=== PATIENT | male | born 1990 | race Caucasian/White ===

== ENCOUNTER 2017-12-18 09:35 | Emergency (ER) | payer BC, OTHER ==
--- NOTE | 2017-12-18 10:44 | ER Document Report ---
ED GI/ - General Chief Complaint: Testicular Pain Stated Complaint: LEFT SIDE PAIN Time Seen by Provider: 12/18/17 10:36 Notes: The patient is a 27-year-old male, no past medical history, presents with 1 week of left-sided testicular pain that is worse with movement. He went to the urgent care and was sent to the ER for further evaluation. He denies hematuria , dysuria, rash, flank pain, fevers, swelling, nausea or vomiting. TRAVEL OUTSIDE OF THE [place] IN LAST 30 DAYS: No - Related Data Allergies/Adverse Reactions: No Known Allergies Allergy (Unverified 12/18/17 09:36) Past Medical History - General Information source: Patient - Social History Smoking Status: Never Smoker Chew tobacco use (# tins/day): No Frequency of alcohol use: None Drug Abuse: None Family History: Reviewed & Not Pertinent Patient has suicidal ideation: No Patient has homicidal ideation: No Renal/ Medical History: Denies: Hx Peritoneal Dialysis Review of Systems - Review of Systems Notes: REVIEW OF SYSTEMS: CONSTITUTIONAL: -fevers, -chills EENT: -eye pain, -difficulty swallowing, -nasal congestion CARDIOVASCULAR: -chest pain, -syncope. RESPIRATORY: -cough, -SOB GASTROINTESTINAL: -abdominal pain, -nausea, -vomiting, -diarrhea GENITOURINARY: -dysuria, -hematuria, +left testicular pain MUSCULOSKELETAL: -back pain, -neck pain SKIN: -rash or skin lesions. HEMATOLOGIC: -easy bruising or bleeding. LYMPHATIC: -swollen, enlarged glands. NEUROLOGICAL: -altered mental status or loss of consciousness, -headache, - neurologic symptoms PSYCHIATRIC: -anxiety, -depression. ALL OTHER SYSTEMS REVIEWED AND NEGATIVE. Physical Exam - Vital signs Vitals: Temp Pulse Resp BP Pulse Ox 98.2 F 86 16 133/74 H 100 12/18/17 09:41 12/18/17 09:41 12/18/17 09:41 12/18/17 09:41 12/18/17 09:41 - Notes Notes: PHYSICAL EXAMINATION: GENERAL: Well-appearing, well-nourished and in no acute distress. HEAD: Atraumatic, normocephalic. EYES: Pupils equal round and reactive to light, extraocular movements intact, sclera anicteric, conjunctiva are normal. ENT: nares patent, oropharynx clear without exudates. Moist mucous membranes. NECK: Normal range of motion, supple without lymphadenopathy LUNGS: Breath sounds clear to auscultation bilaterally and equal. No wheezes rales or rhonchi. HEART: Regular rate and rhythm without murmurs ABDOMEN: Soft, nontender, normoactive bowel sounds. No guarding, no rebound. No masses appreciated. : Tenderness over left testicle. No asymmetry. No inguinal hernia palpated. EXTREMITIES: Normal range of motion, no pitting or edema. No cyanosis. NEUROLOGICAL: Cranial nerves grossly intact. Normal speech, normal gait. Normal sensory and motor exams. PSYCH: Normal mood, normal affect. SKIN: Warm, Dry, normal turgor, no rashes or lesions noted. Course - Re-evaluation Re-evalutation: Patient appears well. Exam and ultrasound did not reveal torsion or mass. Urinalysis also does not show evidence of infection or blood. Symptoms are atypical for kidney stone. Instructed him to follow-up with urologist and use symptomatic treatment with NSAIDs and briefs. - Vital Signs Vital signs: Temp Pulse Resp BP Pulse Ox 98.2 F 86 16 133/74 H 100 12/18/17 09:41 12/18/17 09:41 12/18/17 09:41 12/18/17 09:41 12/18/17 09:41 - Diagnostic Test Radiology reviewed: Image reviewed, Reports reviewed Radiology results interpreted by me: Scrotal US: NAD Discharge - Discharge Clinical Impression: Left testicular pain Condition: Stable Disposition: HOME, SELF-CARE Additional Instructions: You may take Motrin and wear briefs to help out with your pain. Follow-up with the urologist if the pain is not improving. Forms: Elevated Blood Pressure Referrals: CHILO FORD [Primary Care Provider] - Follow up as needed [facility] [Provider Group] - Follow up as needed
[2017-12-18 11:01] LABS: APPEARANCE,URINE CLEAR; BILIRUBIN,URINE NEGATIVE (NEGATIVE); COLOR,URINE YELLOW; GLUCOSE, URINE NEGATIVE (NEGATIVE); KETONES,URINE NEGATIVE (NEGATIVE); LEUKOCYTE ESTERASE,URINE NEGATIVE (NEGATIVE); NITRITE,URINE NEGATIVE (NEGATIVE); PROTEIN,URINE NEGATIVE (NEGATIVE); URINE SPECIFIC GRAVITY 1.012; UROBILINOGEN,URINE NEGATIVE mg/dL (<2.0)
--- NOTE | 2017-12-18 11:54 | RADIOLOGY REPORT (SQ) ---
EXAM DESCRIPTION: U/S SCROTUM W/DOPPLER COMPLETED DATE/TIME: 12/18/2017 11:46 am REASON FOR STUDY: left testicular pain COMPARISON: None. TECHNIQUE: Static and realtime mccrary scale imaging of the scrotum and testes. Selected color Doppler and spectral images recorded to document blood flow. LIMITATIONS: None. FINDINGS: RIGHT: TESTICLE: Normal size, 3.5 x 2.7 x 2.4 cm. Normal echotexture. Normal blood flow. No mass. EPIDIDYMIS: Normal. HYDROCELE OR VARICOCELE: No. HERNIA OR EXTRA-TESTICULAR MASS: No. OTHER: No other significant finding. LEFT: TESTICLE: Normal size, 3.4 x 2.7 x 2.1 cm. Normal echotexture. Normal blood flow. No mass. EPIDIDYMIS: Normal. HYDROCELE OR VARICOCELE: No. HERNIA OR EXTRA-TESTICULAR MASS: No. OTHER: No other significant finding. IMPRESSION: NORMAL SCROTAL ULTRASOUND. NO EVIDENCE OF TESTICULAR MASS OR TORSION. TECHNICAL DOCUMENTATION: JOB ID: [id number] [employer]- All Rights Reserved Reading location - IP/workstation name: [email or web address]
[2017-12-18 12:33] LABS: CHLAM PCR NOT DETECTED (NOT DETECT); GON PCR NOT DETECTED (NOT DETECT)
[2017-12-18 12:36] VITALS: BP 147/77
== END 2017-12-18 12:36 | disposition home or self-care (01) ==
LOC: ER 09:35
DX: N50.812 Left testicular pain (principal)
CPT/HCPCS: 76870; 81001; 87491; 87591; 93976; 99284

== ENCOUNTER 2018-01-12 20:04 | Emergency (ER) | payer BC ==
--- NOTE | 2018-01-12 21:51 | EKG REPORT ---
SEVERITY:- ABNORMAL ECG - SINUS TACHYCARDIA NONSPECIFIC INTRAVENTRICULAR CONDUCTION DELAY : Confirmed by: Felicia Kent 12-Jan-2018 21:50:55
--- NOTE | 2018-01-12 22:14 | ER Document Report ---
ED Medical Screen (RME) - General Chief Complaint: Chest Pain Stated Complaint: CHEST PAIN Time Seen by Provider: 01/12/18 22:08 Notes: 27-year-old male, chief complaint of chest pain along the left sternal border for 1 week, sharp intermittent. He also complains that within the past day he is had episodes where he felt lightheaded and he got tingling sensations in his hands. He felt nausea earlier, denies any now. Denies shortness of breath. Denies fever chills or recent illness. Denies history of the same. No daily medications. He denies any recreational drugs, smoking, or alcohol. TRAVEL OUTSIDE OF THE [place] IN LAST 30 DAYS: No - Related Data Allergies/Adverse Reactions: No Known Allergies Allergy (Unverified 12/18/17 09:36) Past Medical History Renal/ Medical History: Denies: Hx Peritoneal Dialysis Physical Exam - Vital signs Vitals: Temp Pulse Resp BP Pulse Ox 98.8 F 101 H 15 137/83 H 100 01/12/18 20:18 01/12/18 20:18 01/12/18 20:18 01/12/18 20:18 01/12/18 20:18 - Respiratory Respiratory status: No respiratory distress Chest status: Tender - Left sternal border Breath sounds: Normal. No: Decreased air movement, Wheezing - Cardiovascular Rhythm: Regular, Tachycardia - Borderline Heart sounds: Normal auscultation, S1 appreciated, S2 appreciated Murmur: No Course - Re-evaluation Re-evalutation: Patient has pain along his left sternal border, most likely chest wall pain, however based on his reported symptoms of lightheadedness and tingling sensations will obtain blood count and chemistry in addition to EKG and chest x- ray. - Vital Signs Vital signs: Temp Pulse Resp BP Pulse Ox 98.8 F 101 H 15 137/83 H 100 01/12/18 20:18 01/12/18 20:18 01/12/18 20:18 01/12/18 20:18 01/12/18 20:18
--- NOTE | 2018-01-12 22:43 | RADIOLOGY REPORT (SQ) ---
CXR- 2 VIEW Clinical history: 27-year-old male with chest pain. Comparison: None. Technique: 2 views of the chest are submitted for review. Findings: The lungs are adequately expanded without evidence of infiltrate and/or effusion. The cardiac silhouette measures within normal. Pulmonary vascularity is unremarkable. Osseous structures are within normal limits for age. Impression: No plain film evidence for acute cardiopulmonary disease.
[2018-01-12 22:45] LABS: ANION GAP 15 (5-19); BLOOD UREA NITROGEN 13 mg/dL (7-20); CARBON DIOXIDE 26 mmol/L (22-30); CHLORIDE 104 mmol/L (98-107); GLUCOSE 81 mg/dL (75-110); POTASSIUM 3.9 mmol/L (3.6-5.0); SODIUM 145.4 mmol/L (137-145)
[2018-01-12 22:57] LABS: ABSOLUTE EOSINOPHILS # (AUTO) 0.1 10^3/uL (0.0-0.6); ABSOLUTE LYMPHOCYTES (AUTO) 2.8 10^3/uL (0.5-4.7); ABSOLUTE MONOCYTES (AUTO) 0.9 10^3/uL (0.1-1.4); ABSOLUTE NEUT (AUTO) 7.4 10^3/uL (1.7-8.2); BASOPHILS % (AUTO) 0.4 % (0-2); EOSINOPHILS % (AUTO) 0.5 % (0-6); HEMOGLOBIN 16.6 g/dL (13.5-17.0); LYMPHOCYTES % (AUTO) 25.3 % (13-45); MEAN CORPUSCULAR HEMOGLOBIN 28.9 pg (27.0-33.4); MEAN CORPUSCULAR HGB CONC 34.5 g/dL (32.0-36.0); MEAN CORPUSCULAR VOLUME 84 fl (80-97); MONOCYTES % (AUTO) 7.7 % (3-13); PLATELET COUNT 263 10^3/uL (150-450); RED BLOOD COUNT 5.73 10^6/uL (4.35-5.55); RED CELL DISTRIBUTION WIDTH 12.8 % (11.5-14.0); SEGMENTED NEUTROPHILS % (AUTO) 66.1 % (42-78); TOTAL CELLS COUNTED % (AUTO) 100 %; WHITE BLOOD COUNT 11.2 10^3/uL (4.0-10.5)
--- NOTE | 2018-01-12 23:39 | ER Document Report ---
ED General - General Chief Complaint: Chest Pain Stated Complaint: CHEST PAIN Time Seen by Provider: 01/12/18 22:08 Notes: 27-year-old male to the emergency department chief complaint of chest pain. Patient states that he has chest pain on and off. If you would put his finger on his sternum that would make it go away. No shortness of breath. No recent surgeries. No history of blood clots. No significant pulmonary embolism risk factors. Does not smoke. Does not drink. Does not take any medications. Patient went to see his regular doctor recently to discuss getting on some medications for anxiety. Has an appointment scheduled with [facility] neuropsychiatric clinic but has not seen them yet. Denies any fever, chills or sweats. Denies any other symptoms at this time. TRAVEL OUTSIDE OF THE [place] IN LAST 30 DAYS: No - HPI Onset/Duration: Gradual Severity: Mild Pain Level: 0 - Related Data Allergies/Adverse Reactions: No Known Allergies Allergy (Unverified 12/18/17 09:36) Past Medical History - General Information source: Patient - Social History Smoking Status: Never Smoker Frequency of alcohol use: None Drug Abuse: None Lives with: Parents Family History: Reviewed & Not Pertinent Patient has suicidal ideation: No Patient has homicidal ideation: No Renal/ Medical History: Denies: Hx Peritoneal Dialysis Review of Systems - Review of Systems Notes: Constitutional: denies: Chills, Diaphoresis, Fever, Malaise, Weakness EENT: denies: Eye discharge, Blurred vision, Tearing, Double vision, Nose congestion, Nose discharge, Throat swelling, Mouth pain Cardiovascular: denies: Palpitations, Heart racing, Orthopnea, Dyspnea. Complains of intermittent chest pain relieved with palpation. Respiratory: denies: Cough, Hurts to breathe, Wheezing, Shortness of breath Gastrointestinal: denies: Abdominal pain, Diarrhea, Nausea, Vomiting, Black stools Genitourinary: denies: Burning, Dysuria, Discharge, Frequency, Flank pain, Hematuria Musculoskeletal: denies: Joint pain, Joint swelling, Muscle pain, Muscle stiffness, back pain Hematologic/Lymphatic: denies: Anemia, Easy bleeding, Easy bruising, Blood clots Neurological/Psychological: denies: Confusion, Dementia, Depression, Loss of consciousness. Does complain of some intermittent numbness and tingling of his fingers. Is complaining of some anxiety Skin: Denies any rashes or lesions Physical Exam - Vital signs Vitals: Temp Pulse Resp BP Pulse Ox 98.8 F 101 H 15 137/83 H 100 01/12/18 20:18 01/12/18 20:18 01/12/18 20:18 01/12/18 20:18 01/12/18 20:18 Interpretation: Normal - Notes Notes: Well-appearing 27-year-old male anxious but otherwise unremarkable. - General General appearance: Appears well, Alert - HEENT Head: Normocephalic, Atraumatic Eyes: Normal Pupils: PERRL - Respiratory Respiratory status: No respiratory distress Chest status: Nontender Breath sounds: Normal Chest palpation: Normal - Cardiovascular Rhythm: Regular Heart sounds: Normal auscultation Murmur: No - Abdominal Inspection: Normal Distension: No distension Bowel sounds: Normal Tenderness: Nontender Organomegaly: No organomegaly - Back Back: Normal, Nontender - Extremities General upper extremity: Normal inspection, Nontender, Normal color, Normal ROM , Normal temperature General lower extremity: Normal inspection, Nontender, Normal color, Normal ROM , Normal temperature, Normal weight bearing. No: Zhao's sign - Neurological Neuro grossly intact: Yes Cognition: Normal Orientation: AAOx4 [place] Coma Scale Eye Opening: Spontaneous [place] Coma Scale Verbal: Oriented [place] Coma Scale Motor: Obeys Commands [place] Coma Scale Total: 15 Speech: Normal Motor strength normal: LUE, RUE, LLE, RLE Sensory: Normal - Psychological Associated symptoms: Normal affect, Normal mood. No: Agitated, Angry - Skin Skin Temperature: Warm Skin Moisture: Dry Skin Color: Normal Course - Re-evaluation Re-evalutation: 01/13/18 00:15 Patient had sinus tachycardia but after visiting with him patient is quite the anxious individual. Patient has a degree but has never gotten a job. Does express some severe generalized anxiety. Symptoms would be consistent with that as well. No chest pain at this time. Likely everything is unremarkable more than likely this represents some spectrum of his anxiety. Patient does have a follow-up appointment for a psychiatrist. I think this is most likely beneficial thing for him at this time. Patient is low risk for pulmonary embolism. No risk factors at this time. No active chest pain. Heart rate is in the 70s. Patient resting comfortably at this time. When I go in the room to speak with him his heart rate comes up. When I believe I can see him on a monitor and the heart rate goes down so definitely has some component of some white coat syndrome going on here. Blood pressure was high when I went in the room as well. Mother is in the room at this time and is present during the conversation. 01/13/18 00:44 Laboratory 01/12/18 01/12/18 01/12/18 21:20 21:20 21:20 WBC 11.2 H RBC 5.73 H Hgb 16.6 Hct 48.0 MCV 84 MCH 28.9 MCHC 34.5 RDW 12.8 Plt Count 263 Seg Neutrophils % 66.1 Lymphocytes % 25.3 Monocytes % 7.7 Eosinophils % 0.5 Basophils % 0.4 Absolute Neutrophils 7.4 Absolute Lymphocytes 2.8 Absolute Monocytes 0.9 Absolute Eosinophils 0.1 Absolute Basophils 0.0 Sodium 145.4 H Potassium 3.9 Chloride 104 Carbon Dioxide 26 Anion Gap 15 BUN 13 Creatinine 1.10 Est GFR ( Amer) > 60 Est GFR (Non-Af Amer) > 60 Glucose 81 Calcium 10.0 TSH 1.52 Free T4 1.29 - Vital Signs Vital signs: Temp Pulse Resp BP Pulse Ox 98.8 F 101 H 15 137/83 H 100 01/12/18 20:18 01/12/18 20:18 01/12/18 20:18 01/12/18 20:18 01/12/18 20:18 - Laboratory Result Diagrams: 01/12/18 21:20 01/12/18 21:20 Laboratory results interpreted by ia: 01/12/18 01/12/18 21:20 21:20 WBC 11.2 H RBC 5.73 H Sodium 145.4 H - EKG Interpretation by Ia EKG shows normal: [place], Intervals, QRS Complexes, ST-T Waves Rate: Tachycardia Discharge - Discharge Clinical Impression: Chest pain Qualifiers: Chest pain type: unspecified Qualified Code(s): R07.9 - Chest pain, unspecified Condition: Good Disposition: HOME, SELF-CARE Instructions: Chest Pain of Unclear Cause ([facility]) Additional Instructions: Please follow-up with your regular doctor soon as possible for repeat evaluation. Referrals: FREEMAN STREETER MD [ACTIVE STAFF] - Follow up in 1 month
[2018-01-13 00:19] LABS: FREE T4 (FREE THYROXINE) 1.29 ng/dL (0.78-2.19)
[2018-01-13 00:33] LABS: THYROID STIMULATING HORMONE 1.52 uIU/mL (0.47-4.68)
[2018-01-13 00:49] VITALS: BP 130/74
== END 2018-01-13 00:45 | disposition home or self-care (01) ==
LOC: ER 20:04
DX: R07.9 Chest pain, unspecified (principal); F41.1 Generalized anxiety disorder; R20.0 Anesthesia of skin; R00.0 Tachycardia, unspecified
CPT/HCPCS: 36415; 71046; 80048; 84439; 84443; 85025; 93005; 93010; 99285

== ENCOUNTER → 2020-04-01 | Outpatient (CLI) | payer BC ==
[2020-04-01 16:55] LABS: ALBUMIN 4.7 g/dL (3.5-5.0); ALKALINE PHOSPHATASE 81 U/L (38-126); ANION GAP 11 (5-19); ASPARTATE AMINO TRANSFERASE 25 U/L (17-59); BILIRUBIN,DIRECT 0.3 mg/dL (0.0-0.4); BILIRUBIN,TOTAL 0.6 mg/dL (0.2-1.3); BLOOD UREA NITROGEN 14 mg/dL (7-20); CALCIUM 10.1 mg/dL (8.4-10.2); CARBON DIOXIDE 31 mmol/L (22-30); CHLORIDE 99 mmol/L (98-107); GLUCOSE 99 mg/dL (75-110); POTASSIUM 4.1 mmol/L (3.6-5.0); TOTAL PROTEIN 8.2 g/dL (6.3-8.2); TRIGLYCERIDES 185 mg/dL (<150)
[2020-04-01 17:06] LABS: DIRECT LDL 106 mg/dL (<100)
[2020-04-01 17:10] LABS: FREE T4 (FREE THYROXINE) 0.97 ng/dL (0.78-2.19)
[2020-04-01 17:24] LABS: THYROID STIMULATING HORMONE 1.97 uIU/mL (0.47-4.68)
== END ==
LOC: OD 15:38
PROVIDERS: ATTEND Physician Assistant
DX: F90.9 Attention-deficit hyperactivity disorder, unspecified type (principal); Z79.899 Other long term (current) drug therapy
CPT/HCPCS: 36415; 80053; 80061; 82652; 83036; 84439; 84443